=== PATIENT | male | born 1950 | race Caucasian/White ===

== ENCOUNTER 2023-04-27 10:18 | Day surgery (SDC) | payer OTHER ==
[2023-04-24 10:54] VITALS: BMI 22.9
[2023-04-27] MEDS ORDERED: LIDOCAINE HCL/PF 2% SDV 5ML VIAL ONE (12:55)
[2023-04-27] MEDS ORDERED: PROPOFOL 20 ML ONE (12:55)
[2023-04-27] MEDS ORDERED: MIDAZOLAM HCL 2 MG/2 ML SINGLE DOSE VIAL ONE (12:56)
[2023-04-27] MEDS ORDERED: FENTANYL CITRATE/PF 50 MCG/ML VIAL ONE ×2 (12:56→15:44)
[2023-04-27] MEDS ORDERED: ROPIVACAINE HCL 0.5% 30ML VIAL ONE (12:56)
[2023-04-27] MEDS ORDERED: ceFAZolin SODIUM 1 GM VIAL ONE (13:34)
[2023-04-27] MEDS ORDERED: DEXAMETHASONE SOD PHOSPHATE 4 MG/1 ML VIAL ONE (13:34)
[2023-04-27] MEDS ORDERED: KETOROLAC TROMETHAMINE 30 MG/1 ML VIAL ONE (14:45)
[2023-04-27] MEDS ORDERED: ONDANSETRON 4 MG/2 ML VIAL ONE (14:45)
[2023-04-27] MEDS ORDERED: ACETAMINOPHEN INJECTION 100 ML IVPB ONE (14:50)
[2023-04-27] MEDS ORDERED: ONDANSETRON 4 MG/2 ML VIAL IVPUSH PRN (15:45)
[2023-04-27] MEDS ORDERED: LACTATED RINGERS SOLUTION 1,000 ML IV SCH (15:45)
[2023-04-27 16:32] VITALS: RESP 20; TEMP 97.8
[2023-04-27 17:36] VITALS: BP 116/78; PULSE 68
== END 2023-04-27 17:15 | disposition home or self-care (01) ==
LOC: FASU 10:18
PROVIDERS: ATTEND Orthopaedic Surgery
PROC: 0PBM0ZZ Excision of Right Carpal, Open Approach (ICD-10-PCS; 2023-04-27)
PROC: 0RQS0ZZ Repair Right Carpometacarpal Joint, Open Approach (ICD-10-PCS; principal; 2023-04-27 13:52)
DX: M18.12 Unilateral primary osteoarthritis of first carpometacarpal joint, left hand (principal)
CPT/HCPCS: 73110-TC-RT-FY; 73130-TC-RT-FY; 88304-TC; 88311-TC; 94760